=== PATIENT | male | born 1995 | race Two or more races ===

== ENCOUNTER 2019-08-25 19:34 | Emergency (ER) | payer MEDICAID ==
[~2019-08-25] VITALS: Ht 172.7 cm; Wt 68.6 kg
[2019-08-25 21:27] VITALS: BP 138/90
== END 2019-08-25 21:53 | disposition home or self-care (01) ==
LOC: ER 19:34
DX: S06.0X0A Concussion without loss of consciousness, initial encounter (principal); M62.838 Other muscle spasm; R42 Dizziness and giddiness; W22.8XXA Striking against or struck by other objects, initial encounter; Y93.89 Activity, other specified; Y92.096 Garden or yard of other non-institutional residence as the place of occurrence of the external cause; Y99.8 Other external cause status
CPT/HCPCS: 70450; 72125

== ENCOUNTER 2019-10-31 10:58 | Emergency (ER) | payer MEDICAID ==
[~2019-10-31] VITALS: Ht 172.7 cm; Wt 65.4 kg
[2019-10-31 11:23] VITALS: BP 123/67
[2019-10-31] MEDS ORDERED: ACETAMINOPHEN 500 MG TAB PO ONE (13:30)
== END 2019-10-31 13:50 | disposition home or self-care (01) ==
LOC: ER 10:58
DX: G44.209 Tension-type headache, unspecified, not intractable (principal)
CPT/HCPCS: 70450